=== PATIENT | female | born 1975 | race Caucasian/White ===

== ENCOUNTER 2021-06-05 00:02 | Emergency (ER) | payer OTHER ==
[~2021-06-05] VITALS: Ht 160 cm; Wt 62.6 kg
[~2021-06-05 00:02] MED LIST: CLARINEX5 MG/TAB PO; NASONEX17 GM NS
[2021-06-05] MEDS ORDERED: VASOTEC10 MG (00:10)
[2021-06-05] MEDS ORDERED: PEPCID40 MG PO (03:11)
[2021-06-05] MEDS ORDERED: BENADRYL25 MG PO ×2 (03:11→03:12)
[2021-06-05] MEDS ORDERED: MEDROL8 MG PO (03:11)
== END 2021-06-05 03:37 ==
LOC: ER 00:02
DX: L50.9 Urticaria, unspecified (principal); I10 Essential (primary) hypertension